=== PATIENT | female | born 1995 | race Caucasian/White ===

== ENCOUNTER 2016-10-01 22:10 | Emergency (ER) | payer OTHER ==
[2016-10-01 22:23] VITALS: BP 137/77; PULSE 96; BMI 39.9
[2016-10-01] MEDS ORDERED: IBUPROFEN 600 MG TABLET (FP) PO ONE ×2 (23:25→23:53)
[2016-10-01] MEDS ORDERED: METHOCARBAMOL 500 MG TABLET PO ONE (23:26)
--- NOTE | 2016-10-01 23:26 | PDOC ---
History of Present Illness - General History Source: Patient Exam Limitations: No Limitations - History of Present Illness Initial Comments: 10/02/16 00:28 The patient is a 21-year-old female with a significant past medical history of anemia and asthma, and presents to the emergency department with lower back pain for 2 days. The patient reports that the back pain is localized to the left lower back, is non-radiating, and is exacerbated with movement and bending. The patient states that she last had this back pain 6 years ago. The patient denies chest pain, shortness of breath, headache and dizziness. The patient denies fever, chills, abdominal pain, nausea, vomit, diarrhea and constipation. The patient denies dysuria, frequency, urgency and hematuria. Allergies: NKDA Social History: No toxic habits. <Clara Acosta - Last Filed: 10/02/16 00:28> <Andra Michael - Last Filed: 10/02/16 05:15> - General Chief Complaint: Back Pain Stated Complaint: BACK PAIN Time Seen by Provider: 10/01/16 22:58 Past History <Clara Acosta - Last Filed: 10/02/16 00:28> - Past Medical History Anemia: Yes Asthma: Yes - Psycho/Social/Smoking Cessation Hx Anxiety: No Suicidal Ideation: No Smoking Status: No Smoking History: Never smoked Number of Cigarettes Smoked Daily: 0 Hx Alcohol Use: No Substance Use Type: None <Andra Michael - Last Filed: 10/02/16 05:15> - Past Medical History Allergies/Adverse Reactions: Allergies Allergy/AdvReac Type Severity Reaction Status Date / Time No Known Allergies Allergy Verified 10/01/16 22:21 Home Medications: Ambulatory Orders NK [No Known Home Medication] 10/01/16 Review of Systems - Review of Systems Able to Perform ROS?: Yes Comments:: 10/02/16 00:28 CONSTITUTIONAL: Absent: fever, chills, diaphoresis, generalized weakness, malaise, loss of appetite HEENT: Absent: rhinorrhea, nasal congestion, throat pain, throat swelling, difficulty swallowing, mouth swelling, ear pain, eye pain, visual changes CARDIOVASCULAR: Absent: chest pain, syncope, palpitations, irregular heart rate, lightheadedness , peripheral edema RESPIRATORY: Absent: cough, shortness of breath, dyspnea with exertion, orthopnea, wheezing, stridor, hemoptysis GASTROINTESTINAL: Absent: abdominal pain, abdominal distension, nausea, vomiting, diarrhea, constipation, melena, hematochezia GENITOURINARY: Absent: dysuria, frequency, urgency, hesitancy, hematuria, flank pain, genital pain MUSCULOSKELETAL: Present: (+) Lower back pain. Absent: arthralgia, joint swelling SKIN: Absent: rash, itching, pallor HEMATOLOGIC/IMMUNOLOGIC: Absent: easy bleeding, easy bruising, lymphadenopathy, frequent infections ENDOCRINE: Absent: unexplained weight gain, unexplained weight loss, heat intolerance, cold intolerance NEUROLOGIC: Absent: headache, focal weakness or paresthesias, dizziness, unsteady gait, seizure, mental status changes, bladder or bowel incontinence PSYCHIATRIC: Absent: anxiety, depression, suicidal or homicidal ideation, hallucinations. <AcostaClara - Last Filed: 10/02/16 00:28> *Physical Exam - Vital Signs Last Vital Signs Temp Pulse Resp BP Pulse Ox 96 H 96 H 137/77 100 10/01/16 22:22 10/01/16 22:22 10/01/16 22:22 10/01/16 22:22 - Physical Exam Comments: 10/02/16 00:28 GENERAL: Well developed, well nourished. Awake and alert. No acute distress. HEENT: Normocephalic, atraumatic. PERRLA, EOMI. No conjunctival pallor. Sclera are non- icteric. Moist mucous membranes. Oropharynx is clear. NECK: Supple. Full ROM. No JVD. Carotid pulses 2+ and symmetric, without bruits. No thyromegaly. No lymphadenopathy. CARDIOVASCULAR: Regular rate and rhythm. No murmurs, rubs, or gallops. Distal pulses are 2+ and symmetric. PULMONARY: No evidence of respiratory distress. Lungs clear to auscultation bilaterally. No wheezing, rales or rhonchi. ABDOMINAL: Soft. Non-tender. Non-distended. No rebound or guarding. No organomegaly. Normoactive bowel sounds. MUSCULOSKELETAL (+) Left flank pain, no pain with percussion, but minimal pain with deep palpation. Normal range of motion at all joints. No bony deformities or tenderness. EXTREMITIES: No cyanosis. No clubbing. No edema. No calf tenderness. SKIN: Warm and dry. Normal capillary refill. No rashes. No jaundice. NEUROLOGICAL: Alert, awake, appropriate. Cranial nerves 2-12 intact. No deficits to light touch and temperature in face, upper extremities and lower extremities. No motor deficits in the in face, upper extremities and lower extremities. Normoreflexic in the upper and lower extremities. Normal speech. Toes are down- going bilaterally. Gait is normal without ataxia. PSYCHIATRIC: Cooperative. Good eye contact. Appropriate mood and affect. <Clara Acosta - Last Filed: 10/02/16 00:28> - Vital Signs Last Vital Signs Temp Pulse Resp BP Pulse Ox 96 H 96 H 137/77 100 10/01/16 22:22 10/01/16 22:22 10/01/16 22:22 10/01/16 22:22 <Andra Michael - Last Filed: 10/02/16 05:15> ED Treatment Course - Medications Given in the ED: ED Medications Discontinued Medications Generic Name Dose Route Start Last Admin Trade Name Freq PRN Reason Stop Dose Admin Ibuprofen 600 mg 10/01/16 23:25 10/01/16 23:54 Motrin - PO 10/01/16 23:26 600 mg ONCE ONE Administration Methocarbamol 1,000 mg 10/01/16 23:26 10/01/16 23:54 Robaxin - PO 10/01/16 23:27 1,000 mg ONCE ONE Administration <Clara Acosta - Last Filed: 10/02/16 00:28> Medical Decision Making - Medical Decision Making 10/02/16 05:12 Pt comes with muscular back pain No radiation of pain down her legs. Pt was given NSAID and muscle relaxant in the ER for the pain. She has a normal UA; no dysuria and no sign of kidney stone. Pt has no spinal tenderness, but I ordered a lumbar spine CT to evaluate vertebral height. Pt refused the L spine XR as it was taking too long. SHe eloped from the ER. <Andra Michael - Last Filed: 10/02/16 05:15> *DC/Admit/Observation/Transfer - Attestations Scribe Attestion: 10/02/16 00:29 Documentation prepared by Clara Acosta, acting as medical orderly for Andra Michael MD. <Clara Acosat - Last Filed: 10/02/16 00:28> <Andra Michael - Last Filed: 10/02/16 05:15> Diagnosis at time of Disposition: Low back pain - Discharge Dispostion Disposition: ELOPED Condition at time of disposition: Improved
[2016-10-01] MEDS ORDERED: METHOCARBAMOL 500 MG TABLET ONE (23:53)
[2016-10-01 23:57] LABS: URINE APPEARANCE CLEAR; URINE BILIRUBIN NEGATIVE (NEGATIVE); URINE BLOOD NEGATIVE (NEGATIVE); URINE COLOR LTYELLOW; URINE GLUCOSE (UA) NEGATIVE (NEGATIVE); URINE KETONE NEGATIVE (NEGATIVE); URINE LEUK ESTERASE NEGATIVE (NEGATIVE); URINE NITRITE NEGATIVE (NEGATIVE); URINE PROTEIN NEGATIVE (NEGATIVE); URINE UROBILINOGEN NEGATIVE E.U./dl (0.2-1.0)
== END 2016-10-02 05:15 | disposition left against medical advice (07) ==
LOC: JER 22:10
DX: M54.5 Low back pain (principal)
CPT/HCPCS: 81003; 84703; 99281-25

== ENCOUNTER 2017-07-25 14:56 | Emergency (ER) | payer OTHER ==
[2017-07-25 15:08] VITALS: BP 128/72; PULSE 86; TEMP 98; BMI 38.2
--- NOTE | 2017-07-25 15:08 | PDOC ---
Rapid Medical Evaluation Chief Complaint: Ear Problem Time Seen by Provider: 07/25/17 15:06 Medical Evaluation: Allergies Allergy/AdvReac Type Severity Reaction Status Date / Time No Known Allergies Allergy Verified 07/25/17 15:05 07/25/17 15:06 pt here with c/o: ear pain and nasal congestion, no fevr, 15 weeks Pt evaluated briefly: vss, no erythema to post pharynx Pt ordered for : none Pt to proceed to the ED Discharge Disposition - Diagnosis Right ear pain - Referrals Referrals: Luca Robertson MD [Primary Care Provider] - - Patient Instructions - Post Discharge Activity
--- NOTE | 2017-07-25 17:07 | PDOC ---
History of Present Illness - General Chief Complaint: Ear Problem Stated Complaint: 15wks preg Cold Symptoms Time Seen by Provider: 07/25/17 15:06 History Source: Patient Exam Limitations: No Limitations - History of Present Illness Timing/Duration: intermittent (for 4 days, rt. ear pressure last night feels clogged ) Severity: mild Associated Symptoms: reports: other (nasal congestion, rt. ear feels clogged). denies: chest pain, cough, diaphoresis, fever/chills, headaches, loss of appetite, malaise, nausea/vomiting, rash, seizure, shortness of breath, syncope , weakness Past History - Past Medical History Allergies/Adverse Reactions: Allergies Allergy/AdvReac Type Severity Reaction Status Date / Time No Known Allergies Allergy Verified 07/25/17 15:05 Home Medications: Ambulatory Orders Loratadine [Claritin -] 10 mg PO DAILY #7 tablet MDD 1 07/25/17 Anemia: Yes Asthma: Yes COPD: No - Suicide/Smoking/Psychosocial Hx Smoking Status: No Smoking History: Never smoked Have you smoked in the past 12 months: No Number of Cigarettes Smoked Daily: 0 Information on smoking cessation initiated: No Hx Alcohol Use: No Drug/Substance Use Hx: No Substance Use Type: None Review of Systems - Review of Systems Able to Perform ROS?: Yes Constitutional: No: Symptoms Reported HEENTM: Yes: Nose Congestion (for 4 days, left nostril bleeding today none now ) Respiratory: No: Symptoms reported Cardiac (ROS): No: Symptoms Reported ABD/GI: No: Symptoms Reported : No: Symptoms Reported Musculoskeletal: No: Symptoms Reported Integumentary: No: Symptoms Reported Neurological: No: Symptoms reported *Physical Exam - Vital Signs Last Vital Signs Temp Pulse Resp BP Pulse Ox 98.0 F 86 18 128/72 100 07/25/17 15:06 07/25/17 15:06 07/25/17 15:06 07/25/17 15:06 07/25/17 15:06 - Physical Exam General Appearance: Yes: Appropriately Dressed HEENT: positive: TMs Normal (b/l ), Nasal Congestion (b/l, dried blood left nostril ), Hearing Grossly Normal. negative: Pharyngeal Erythema, Tonsillar Exudate, Tonsillar Erythema, Hearing Decreased Neck: negative: Lymphadenopathy (R), Lymphadenopathy (L) Respiratory/Chest: positive: Lungs Clear, Normal Breath Sounds. negative: Chest Tender, Respiratory Distress Cardiovascular: positive: Regular Rhythm, Regular Rate, S1, S2 Integumentary: positive: Normal Color Neurologic: positive: Alert, Normal Response *DC/Admit/Observation/Transfer Diagnosis at time of Disposition: Right ear pain, Nasal congestion, Mild epistaxis Upper respiratory infection Qualifiers: URI type: unspecified viral URI Qualified Code(s): J06.9 - Acute upper respiratory infection, unspecified; B97.89 - Other viral agents as the cause of diseases classified elsewhere; B97.89 - Other viral agents as the cause of diseases classified elsewhere - Discharge Dispostion Disposition: HOME Condition at time of disposition: Stable - Referrals Referrals: Luca Robertson MD [Primary Care Provider] - - Patient Instructions Additional Instructions: Drink a lot a fluids and rest Follow-up with your primary care provider within the next few days Return to emergency room if any difficulty breathing or any new symptoms develop You may put a humidifier next to your bed to help nasal congestion If nosebleed reoccurs apply pressure to both sides of nose keep pressure for 15 minutes without stopping Patient voiced understanding of discharge instructions and all questions were answered - Post Discharge Activity
== END 2017-07-25 17:46 | disposition home or self-care (01) ==
LOC: JERFT 14:56
DX: O99.89 Other specified diseases and conditions complicating pregnancy, childbirth and the puerperium (principal); J06.9 Acute upper respiratory infection, unspecified; B97.89 Other viral agents as the cause of diseases classified elsewhere; Z3A.15 15 weeks gestation of pregnancy
CPT/HCPCS: 86235; 99281-25

== ENCOUNTER 2017-11-09 16:06 | Emergency (ER) | payer OTHER ==
--- NOTE | 2017-11-09 16:10 | PDOC ---
Rapid Medical Evaluation Time Seen by Provider: 11/09/17 16:09 Medical Evaluation: Allergies Allergy/AdvReac Type Severity Reaction Status Date / Time No Known Allergies Allergy Verified 11/08/17 15:19 11/09/17 16:09 22 year old female with history of eczema presenting with 2-3 days of rash on hands bilaterally, typical of prior flares. 30 wks and sent here by PCP for evaluation. No OB complaints. -To FT
[2017-11-09 16:11] VITALS: BP 125/65; PULSE 98; TEMP 98; BMI 37.4
--- NOTE | 2017-11-09 16:43 | PDOC ---
History of Present Illness - General Chief Complaint: Rash Stated Complaint: 30 weeks c/o Eczema Time Seen by Provider: 11/09/17 16:09 History Source: Patient Exam Limitations: No Limitations - History of Present Illness Initial Comments: 11/09/17 16:42 22 yr female 30 weeks with eczema to her hands for 3 days . pos itching no redness. 11/09/17 18:32 Location: reports: hands Past History - Past Medical History Allergies/Adverse Reactions: Allergies Allergy/AdvReac Type Severity Reaction Status Date / Time No Known Allergies Allergy Verified 11/09/17 16:11 Home Medications: Ambulatory Orders 19 Tablet 1 tab PO DAILY 11/08/17 Anemia: Yes Asthma: Yes COPD: No - Suicide/Smoking/Psychosocial Hx Smoking Status: No Smoking History: Never smoked Have you smoked in the past 12 months: No Number of Cigarettes Smoked Daily: 0 Information on smoking cessation initiated: No Hx Alcohol Use: No Drug/Substance Use Hx: No Substance Use Type: None Review of Systems - Review of Systems Able to Perform ROS?: Yes Is the patient limited Yakut proficient: No Constitutional: No: Symptoms Reported HEENTM: No: Symptoms Reported Respiratory: No: Symptoms reported Cardiac (ROS): No: Symptoms Reported ABD/GI: No: Symptoms Reported Integumentary: Yes: Symptoms Reported *Physical Exam - Vital Signs Last Vital Signs Temp Pulse Resp BP Pulse Ox 98 F 98 H 18 125/65 97 11/09/17 16:09 11/09/17 16:09 11/09/17 16:09 11/09/17 16:09 11/09/17 16:09 - Physical Exam General Appearance: Yes: Nourished, Appropriately Dressed HEENT: positive: EOMI, DHAVAL Neck: positive: Supple Respiratory/Chest: positive: Lungs Clear, Normal Breath Sounds Cardiovascular: positive: Regular Rhythm, Regular Rate Integumentary: positive: Normal Color, Dry, Warm, Rash (patchy scaly areas on the dorsal surface of bilateral hands, no drainage , no pustules ) Neurologic: positive: Fully Oriented, Alert, Normal Mood/Affect, Normal Response , Motor Strength 5/5 Medical Decision Making - Medical Decision Making 11/09/17 18:34 cc: rash to hands for 3 days itchy and dry no vesicles no redness, limited to the thenar surfaces of both hands, no palmar involvement no redness or drainage will treat with Aquaphor ointment dc inst given to the pt all questions asked and answered at discharge *DC/Admit/Observation/Transfer Diagnosis at time of Disposition: Eczema Qualifiers: Eczema type: unspecified Qualified Code(s): L30.9 - Dermatitis, unspecified - Discharge Dispostion Disposition: HOME Condition at time of disposition: Good - Referrals Referrals: Luca Robertson MD [Primary Care Provider] - - Patient Instructions Additional Instructions: cool water to wash hands avoid hot water and perfumed soaps apply aquaphor 2-3 times a day return if any increased redness, spreading up the arm or any other concerns - Post Discharge Activity
== END 2017-11-09 16:45 | disposition home or self-care (01) ==
LOC: JERFT 16:06
DX: O26.893 Other specified pregnancy related conditions, third trimester (principal); O99.713 Diseases of the skin and subcutaneous tissue complicating pregnancy, third trimester; L30.9 Dermatitis, unspecified; Z3A.30 30 weeks gestation of pregnancy
CPT/HCPCS: 99281-25

== ENCOUNTER 2018-01-18 14:00 | Inpatient (IN) | payer OTHER ==
[2018-01-18 15:32] VITALS: BMI 40.4
--- NOTE | 2018-01-18 16:03 | PN ---
Progress Note (short form) - Note Progress Note: xx 3 cm, 70 vx -3 mi, fhr cat 1, no contraction, cervidil rba discussed, cervidil inserted
[2018-01-18 16:13] LABS: BASO % 0.3 % (0-2.0); EOS % 2.3 % (0-4.5); HEMATOCRIT 37.8 % (32.4-45.2); HEMOGLOBIN 12.8 GM/dL (10.7-15.3); LYMPH % 14.5 % (8-40); MCH 29.8 pg (25.7-33.7); MCHC 33.8 g/dl (32.0-36.0); MEAN CELL VOLUME 88.1 fl (80-96); MEAN PLT VOLUME 9.1 fl (7.5-11.1); MONO % 4.2 % (3.8-10.2); NEUT % 78.7 % (42.8-82.8); PLATELET COUNT 220 K/MM3 (134-434); RBC 4.29 M/mm3 (3.60-5.2); RDW 14.2 % (11.6-15.6); WHITE BLOOD COUNT 10.1 K/mm3 (4.0-10.0)
[2018-01-18 16:39] LABS: ANION GAP 7 (8-16); BLOOD UREA NITROGEN 7 mg/dL (7-18); CALCIUM 8.5 mg/dL (8.5-10.1); CHLORIDE 109 mmol/L (98-107); CO2 24 mmol/L (21-32); CREATININE 0.5 mg/dL (0.55-1.02); GLUCOSE,RANDOM 89 mg/dL (74-106); SODIUM 140 mmol/L (136-145)
[2018-01-18 17:40] LABS: INR 0.98 (0.82-1.09); PROTHROMBIN TIME (PATIENT) 11.1 SEC (9.7-13.0)
[2018-01-18 17:43] LABS: ACTIVATED PTT 26.6 SECONDS (26.9-34.4)
[2018-01-18] MEDS ORDERED: DINOPROSTONE 10 MG VAGINAL SUPPOSITORY VG ONE (17:45)
--- NOTE | 2018-01-18 21:51 | PN ---
Progress Note (short form) - Note Progress Note: cx 4 cm 70 vx -2 mi, fhr cat 1, irregular contraction
--- NOTE | 2018-01-18 21:56 | HP ---
Past Medical History - Primary Care Physician PCP:: Akhil Billy - Admission Chief Complaint: 40,2 weeks, for cervidil induction History of Present Illness: 22 yo f 40,2 weeks, admitted for cervidil induction, rba discussed cx 3 cm 70 vx -3 mi, fhr cat 1, no contraction History Source: Patient Limitations to Obtaining History: No Limitations - Past Medical History ...: 1 ...Para: 0 ...LMP: 01/09/17 ... Weeks Gestation by Dates: 40.2 ...EDC by Dates: 01/16/18 ...EDC by Sono: 01/16/18 - Past Surgical History Hx Myomectomy: No Hx Transabdominal Cerclage: No - Smoking History Smoking history: Never smoked Have you smoked in the past 12 months: No Aproximately how many cigarettes per day: 0 - Alcohol/Substance Use Hx Alcohol Use: No - Social History History of Recent Travel: No Home Medications - Allergies Allergies/Adverse Reactions: Allergies Allergy/AdvReac Type Severity Reaction Status Date / Time No Known Allergies Allergy Verified 11/09/17 16:11 - Home Medications Home Medications: Ambulatory Orders 19 Tablet 1 tab PO DAILY 11/08/17 Review of Systems - Review of Systems Constitutional: reports: No Symptoms Eyes: reports: No Symptoms HENT: reports: No Symptoms Neck: reports: No Symptoms Cardiovascular: reports: No Symptoms Respiratory: reports: No Symptoms Gastrointestinal: reports: No Symptoms Genitourinary: reports: No Symptoms Breasts: reports: No Symptoms Reported Musculoskeletal: reports: No Symptoms Integumentary: reports: No Symptoms Neurological: reports: No Symptoms Endocrine: reports: No Symptoms Hematology/Lymphatic: reports: No Symptoms Psychiatric: reports: No Symptoms Physical Exam - Maternity Vital Signs: Vital Signs Temperature 98.5 F 01/18/18 14:00 Pulse Rate 86 01/18/18 21:00 Respiratory Rate 18 01/18/18 21:00 Blood Pressure 138/81 01/18/18 21:00 O2 Sat by Pulse Oximetry (%) Constitutional: Yes: Well Nourished, No Distress, Calm Eyes: Yes: WNL, Conjunctiva Clear, EOM Intact HENT: Yes: WNL, Atraumatic, Normocephalic Neck: Yes: WNL, Supple, Trachea Midline Cardiovascular: Yes: WNL, Regular Rate and Rhythm Breast(s): Yes: WNL - Abdominal Exam/OB Fundal Height: 40 Number of Fetuses: Single Presentation: Vertex Contractions: No Intensity: Unaware Heart Rate Location: [facility] Category: I Accelerations: Uniform Decelerations: None - Vaginal Exam/OB Vaginal Bleediing: No Speculum Exam: No Dilatation (cm): 3 cm Effacement (%): 70 Amniotic Membrane Status: Intact Presentation: Vertex/Position Station: -3 - Physical Exam Musculoskeletal: Yes: WNL Edema: Yes Edema: LLE: Trace, RLE: Trace Deep Tendon Reflex Grade: Normal +2 Psychiatric: Yes: WNL - Labs Lab Results: CBC, BMP 01/18/18 15:00 01/18/18 15:00 Hemorrhage Risk Assessment - Risk Factors Medium Risk Factors: Yes: None High Risk Factors: Yes: None Risk Score: 1 Risk Level: Medium Risk Problem List - Problems (1) Post term over 40 weeks Code(s): O48.0 - POST-TERM (2) Encounter for elective induction of labor Code(s): Z34.90 - ENCNTR FOR SUPRVSN OF NORMAL , UNSP, UNSP TRIMESTER Assessment/Plan admit for cervidil induction. rba discussed
[2018-01-18] MEDS ORDERED: BUTORPHANOL TARTRATE 1 MG/ML VIAL IVPUSH ONE (22:30)
[2018-01-18] MEDS ORDERED: PROMETHAZINE HCL 25 MG/1 ML VIAL IVPUSH ONE (22:30)
[2018-01-19] MEDS: DEXTROSE 5%-LACTATED RINGERS 1,000 ML IV SCH ×2 (00:10→04:30)
[2018-01-19] MEDS ORDERED: PROMETHAZINE HCL 25 MG/1 ML VIAL ONE (00:22)
[2018-01-19] MEDS ORDERED: BUTORPHANOL TARTRATE 1 MG/ML VIAL ONE ×2 (00:22)
[2018-01-19] MEDS ORDERED: OXYTOCIN 30 UNITS in 0.9% NS 30 UNIT/500 ML INFUS.BAG IVPB SCH (04:30)
--- NOTE | 2018-01-19 06:20 | PN ---
Progress Note (short form) - Note Progress Note: cx 5 cm, 80 vc -2 arom, cler fluid, fhr cat 1, on pitocin, irregular contraction Problem List - Problems (1) Post term over 40 weeks Code(s): O48.0 - POST-TERM (2) Encounter for elective induction of labor Code(s): Z34.90 - ENCNTR FOR SUPRVSN OF NORMAL , UNSP, UNSP TRIMESTER
[2018-01-19] MEDS ORDERED: FENTANYL/BUPIVACAINE/NS/PF - PCEA - 50 ML DISP.SYRIN EP ONE (07:04)
[2018-01-19] MEDS: FERROUS SO4 325 MG TABLET (FP) PO SCH ×2 (08:00→17:16)
[2018-01-19] MEDS ORDERED: WITCH HAZEL 50% (TUCKS) 40 PAD/JAR PAD TP PRN (08:06)
[2018-01-19] MEDS ORDERED: BISACODYL 10 MG SUPP.RECT RC PRN (08:06)
[2018-01-19] MEDS ORDERED: oxyCODONE HCL 5 MG TABLET PO PRN (08:06)
[2018-01-19] MEDS ORDERED: METHYLERGONOVINE MALEATE 0.2 MG/1 ML AMP IM PRN (08:06)
[2018-01-19] MEDS ORDERED: BENZOCAINE 28 GM HEMORRHOIDAL OINTMENT TP PRN (08:06)
[2018-01-19] MEDS ORDERED: BENZOCAINE 20% 57 GM BOTTLE TP PRN (08:06)
[2018-01-19] MEDS ORDERED: D5W-LR W/ 20 UNITS OXYTOCIN 20 UNIT/1,000 ML INFUS.BAG IV SCH (08:15)
[2018-01-19] MEDS ORDERED: OXYTOCIN 20 UNITS in 0.9% NS 20 UNIT/1,000 ML INFUS.BAG IV SCH (08:37)
[2018-01-19] MEDS ORDERED: OXYTOCIN 20 UNITS in 0.9% NS 20 UNIT/1,000 ML INFUS.BAG IV ONE (09:05)
[2018-01-19] MEDS: PRENATAL VITAMINS W/ FOLIC ACID TABLET (FP) PO SCH (09:32)
[2018-01-19] MEDS: ACETAMINOPHEN 325 MG TABLET (FP) PO PRN ×2 (12:10→21:31)
[2018-01-19] MEDS: IBUPROFEN 600 MG TABLET (FP) PO PRN ×2 (12:11→21:30)
--- NOTE | 2018-01-20 07:46 | PN ---
Post Progress Note - Subjective Subjective: c/o cramps Post Day: 1 Type of Delivery: Vital Signs: Vital Signs Temperature 97.8 F 01/20/18 06:00 Pulse Rate 90 01/20/18 06:00 Respiratory Rate 18 01/20/18 06:00 Blood Pressure 119/63 01/20/18 06:00 O2 Sat by Pulse Oximetry (%) 100 01/19/18 08:30 Breast Exam: Yes: Soft, Other (not BF ). No: Engorged Uterus: Yes: Fundus Firm, Fundus below umbilicus Lochia: Yes: Rubra Lochia, amount: Moderate Extremities: Yes: Calves non-tender Perineum: Yes: Laceration Activity: Ambulating - Labs Labs: CBC WBC 10.1 K/mm3 (4.0-10.0) H D 01/18/18 15:00 RBC 4.29 M/mm3 (3.60-5.2) 01/18/18 15:00 Hgb 12.8 GM/dL (10.7-15.3) D 01/18/18 15:00 Hct 37.8 % (32.4-45.2) 01/18/18 15:00 MCV 88.1 fl (80-96) 01/18/18 15:00 MCH 29.8 pg (25.7-33.7) D 01/18/18 15:00 MCHC 33.8 g/dl (32.0-36.0) 01/18/18 15:00 RDW 14.2 % (11.6-15.6) 01/18/18 15:00 Plt Count 220 K/MM3 (134-434) D 01/18/18 15:00 MPV 9.1 fl (7.5-11.1) D 01/18/18 15:00 Neutrophils % 78.7 % (42.8-82.8) 01/18/18 15:00 Lymphocytes % 14.5 % (8-40) D 01/18/18 15:00 Monocytes % 4.2 % (3.8-10.2) 01/18/18 15:00 Eosinophils % 2.3 % (0-4.5) 01/18/18 15:00 Basophils % 0.3 % (0-2.0) 01/18/18 15:00 Nucleated RBC % 0 % (0-0) 01/18/18 15:00 Problem List - Problems (1) follow-up Code(s): Z39.2 - ENCOUNTER FOR ROUTINE FOLLOW-UP Assessment/Plan stable Plan cbc today discharge tomorrow
[2018-01-20 08:04] LABS: BASO % 0.4 % (0-2.0); EOS % 1.4 % (0-4.5); HEMATOCRIT 29.2 % (32.4-45.2); HEMOGLOBIN 9.9 GM/dL (10.7-15.3); LYMPH % 19.6 % (8-40); MCH 30.1 pg (25.7-33.7); MCHC 33.8 g/dl (32.0-36.0); MEAN PLT VOLUME 8.3 fl (7.5-11.1); NEUT % 73.6 % (42.8-82.8); PLATELET COUNT 131 K/MM3 (134-434); RBC 3.28 M/mm3 (3.60-5.2); RDW 14.3 % (11.6-15.6); WHITE BLOOD COUNT 10.3 K/mm3 (4.0-10.0)
[2018-01-20] MEDS: PRENATAL VITAMINS W/ FOLIC ACID TABLET (FP) PO SCH (09:32)
[2018-01-20] MEDS: ACETAMINOPHEN 325 MG TABLET (FP) PO PRN (09:32)
[2018-01-20] MEDS: FERROUS SO4 325 MG TABLET (FP) PO SCH ×2 (09:32→17:04)
[2018-01-20] MEDS: IBUPROFEN 600 MG TABLET (FP) PO PRN (09:33)
[2018-01-20] MEDS ORDERED: SENNOSIDES/DOCUSATE COMBO (SENNA PLUS) TABLET (UD) PO PRN (22:00)
--- NOTE | 2018-01-21 06:01 | PN ---
Post Progress Note - Subjective Subjective: no complains Post Day: 2 Type of Delivery: Vital Signs: Vital Signs Temperature 98.1 F 01/20/18 22:00 Pulse Rate 96 H 01/20/18 22:00 Respiratory Rate 18 01/20/18 22:00 Blood Pressure 132/79 01/20/18 22:00 O2 Sat by Pulse Oximetry (%) 100 01/19/18 08:30 Breast Exam: Yes: Soft. No: Engorged Uterus: Yes: Fundus Firm, Fundus below umbilicus, Non-tender, Other (obese abdomen ) Lochia: Yes: Rubra Lochia, amount: Moderate Extremities: Yes: Calves non-tender Perineum: Yes: Laceration (healing ) Activity: Ambulating - Labs Labs: CBC WBC 10.3 K/mm3 (4.0-10.0) H 01/20/18 07:16 RBC 3.28 M/mm3 (3.60-5.2) L D 01/20/18 07:16 Hgb 9.9 GM/dL (10.7-15.3) L D 01/20/18 07:16 Hct 29.2 % (32.4-45.2) L D 01/20/18 07:16 MCV 89.0 fl (80-96) 01/20/18 07:16 MCH 30.1 pg (25.7-33.7) 01/20/18 07:16 MCHC 33.8 g/dl (32.0-36.0) 01/20/18 07:16 RDW 14.3 % (11.6-15.6) 01/20/18 07:16 Plt Count 131 K/MM3 (134-434) L D 01/20/18 07:16 MPV 8.3 fl (7.5-11.1) 01/20/18 07:16 Neutrophils % 73.6 % (42.8-82.8) 01/20/18 07:16 Lymphocytes % 19.6 % (8-40) D 01/20/18 07:16 Monocytes % 5.0 % (3.8-10.2) 01/20/18 07:16 Eosinophils % 1.4 % (0-4.5) 01/20/18 07:16 Basophils % 0.4 % (0-2.0) 01/20/18 07:16 Nucleated RBC % 0 % (0-0) 01/20/18 07:16 Problem List - Problems (1) follow-up Code(s): Z39.2 - ENCOUNTER FOR ROUTINE FOLLOW-UP Assessment/Plan stable , s/p vag delivery / anemia counselled discharge today
[2018-01-21 08:24] VITALS: BP 130/84; PULSE 104; TEMP 98.4
[2018-01-21] MEDS: PRENATAL VITAMINS W/ FOLIC ACID TABLET (FP) PO SCH (09:14)
[2018-01-21] MEDS: FERROUS SO4 325 MG TABLET (FP) PO SCH (09:14)
--- NOTE | 2018-01-23 11:44 | DS ---
Physical Exam-MAIL DISTRIBUTOR Vital Signs: Vital Signs Temperature 98.4 F 01/21/18 08:22 Pulse Rate 104 H 01/21/18 08:22 Respiratory Rate 18 01/21/18 08:22 Blood Pressure 130/84 01/21/18 08:22 O2 Sat by Pulse Oximetry (%) 100 01/19/18 08:30 Constitutional: Yes: Well Nourished, No Distress, Calm Eyes: Yes: WNL, Conjunctiva Clear, EOM Intact HENT: Yes: WNL, Atraumatic, Normocephalic Neck: Yes: WNL, Supple, Trachea Midline Cardiovascular: Yes: WNL, Regular Rate and Rhythm Respiratory: Yes: WNL, Regular, CTA Bilaterally Gastrointestinal: Yes: WNL ...Rectal Exam: Yes: WNL Renal/: Yes: WNL ....Post : Yes: Uterus firm, Uterus non-tender, Slight lochia rubra Breast(s): Yes: WNL Musculoskeletal: Yes: WNL Extremities: Yes: WNL Edema: No Integumentary: Yes: WNL Neurological: Yes: WNL, Alert, Oriented ...Motor Strength: WNL Psychiatric: Yes: WNL, Alert, Oriented Labs: CBC, BMP 01/20/18 07:16 01/18/18 15:00 Delivery - Delivery Vaginal Delivery: Spontaneous (no complication) Type of Anesthesia: Local Episiotomy/Laceration: None EBL (cc): 500 Delivery, Single - Stages of Labor Date 1st Stage Initiatied: 01/19/18 Time 1st Stage Initiated: 12:00 Date 2nd Stage Initiated: 01/19/18 Time 2nd Stage Initiated: 07:15 Date of Delivery: 01/19/18 Time of Delivery: 07:32 Time Placenta Delivered: 07:34 Placenta: Yes: Spontaneous - 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 Gender: Male Weight: 8 lb 9 oz Position: Left, OA Total Hours ROM (Hrs/Mins): 1hr/39mins - 1 Minute Total Score: 7 5 Minutes Total Score: 9 - Feeding Plan Initial Plan: Elected not to breastfeed exclusively throughout hospitalization Discharge Summary Reason For Visit: LABOR INDUCTION Procedures: Principal: Hospital Course: uneventful Condition: Good - Instructions Diet, Activity, Other Instructions: Discharge Instructions * Out of Bed * * Regular Diet, High iron diet * Lorri Care * Avoid sex for 6 weeks * rtc 4-6 weeks f/u with dr Billy If you experience excessive bleeding or fever over 101 degrees, call doctor, the clinic or go to the Emergency Room. Referrals: [facility] ([facility]) [Outside] Disposition: HOME - Home Medications Comprehensive Discharge Medication List: Ambulatory Orders 19 Tablet 1 tab PO DAILY 11/08/17 Acetaminophen [Tylenol .Regular Strength -] 650 mg PO Q3H PRN tablet 01/20/18 Benzocaine [Americaine 20% [place] -] 1 spray TP PRN PRN bottle 01/20/18 Ferrous Sulfate [Feosol] 325 mg PO BIDWM #60 tab 01/20/18 Ibuprofen [Motrin -] 200 mg PO Q4H PRN tablet 01/20/18 Vitamins (Sjr) - 1 tab PO DAILY #30 tablet 01/20/18 Witch Jayde 50% (Tucks) [Tucks Pads -] 1 pad TP PRN PRN pad 01/20/18
== END 2018-01-21 13:00 | disposition home or self-care (01) | DRG 560 ==
LOC: JLDR 14:00 → J3W 01-19 09:19
PROVIDERS: ADMIT Obstetrics & Gynecology; ATTEND Obstetrics & Gynecology
PROC: 3E0P7VZ Introduction of Hormone into Female Reproductive, Via Natural or Artificial Opening (ICD-10-PCS; 2018-01-18)
PROC: 10E0XZZ Delivery of Products of Conception, External Approach (ICD-10-PCS; principal; 2018-01-19)
DX: O48.0 Post-term pregnancy (principal); Z3A.40 40 weeks gestation of pregnancy; O99.214 Obesity complicating childbirth; Z68.41 Body mass index [BMI] 40.0-44.9, adult; E66.9 Obesity, unspecified; Z37.0 Single live birth
CPT/HCPCS: 36415; 59409; 80048; 82803; 85025; 85610; 85730; 86593; 86850; 86900; 86901

== ENCOUNTER 2018-01-31 22:59 | Emergency (ER) | payer OTHER ==
[2018-01-31 23:02] VITALS: BP 139/80; BMI 37.4
[2018-01-31] MEDS ORDERED: ACETAMINOPHEN 325 MG TABLET (FP) PO ONE (23:30)
--- NOTE | 2018-01-31 23:30 | PDOC ---
History of Present Illness - General Chief Complaint: SIRS, Suspected/Possible Stated Complaint: FEVER/ x 1 week Time Seen by Provider: 01/31/18 23:18 - History of Present Illness Initial Comments: 02/01/18 01:21 22-year-old female complaining of low-grade temps and cough 1 day. Patient status post normal vaginal delivery on 01/18/2018. denies abdominal pain, NVD, urinary symptoms. = Past History - Past Medical History Allergies/Adverse Reactions: Allergies Allergy/AdvReac Type Severity Reaction Status Date / Time No Known Allergies Allergy Verified 01/31/18 23:02 Home Medications: Ambulatory Orders Ferrous Sulfate [Feosol] 325 mg PO DAILY 01/31/18 Vitamins (Sjr) - 1 tab PO DAILY 01/31/18 Levofloxacin [Levaquin] 750 mg PO DAILY #5 tablet 02/01/18 Anemia: Yes Asthma: No Cancer: No Cardiac Disorders: No COPD: No Diabetes: No HTN: No Seizures: No Thyroid Disease: No - Suicide/Smoking/Psychosocial Hx Smoking Status: No Smoking History: Never smoked Have you smoked in the past 12 months: No Number of Cigarettes Smoked Daily: 0 Information on smoking cessation initiated: No Hx Alcohol Use: No Drug/Substance Use Hx: No Substance Use Type: None Hx Substance Use Treatment: No Review of Systems - Review of Systems Able to Perform ROS?: Yes Is the patient limited Bengali proficient: No Constitutional: Yes: Fever HEENTM: Yes: Throat Pain Respiratory: Yes: Cough ABD/GI: No: Symptoms Reported, See HPI, Abdominal Distended, Abd. Pain w/ defecation, Blood Streaked Bowels, Constipated, Diarrhea, Difficulty Swallowing , Nausea, Poor Appetite, Poor Fluid Intake, Rectal Bleeding, Vomiting, Indigestion, Abdominal cramping, Tarry Stools, Other : Yes: Symptoms Reported, See HPI, Burning, Dysuria, Discharge, Frequency, Flank Pain, Hematuria, Incontinence, Pain, Urgency, Testicular Mass, Testicular Swelling, Lesions, Testicular Pain, Other *Physical Exam - Vital Signs Last Vital Signs Temp Pulse Resp BP Pulse Ox 100.1 F H 97 H 16 139/80 100 01/31/18 23:00 01/31/18 23:00 01/31/18 23:00 01/31/18 23:00 01/31/18 23:00 - Physical Exam General Appearance: Yes: Appropriately Dressed Respiratory/Chest: positive: Rhonchi Cardiovascular: positive: Regular Rhythm, Regular Rate Gastrointestinal/Abdominal: positive: Normal Bowel Sounds, Soft Extremity: positive: Normal Capillary Refill, Normal Inspection, Normal Range of Motion Integumentary: positive: Normal Color, Dry, Warm Neurologic: positive: Fully Oriented, Alert *DC/Admit/Observation/Transfer Diagnosis at time of Disposition: Pneumonia Qualifiers: Pneumonia type: due to unspecified organism Laterality: left Lung location: lower lobe of lung Qualified Code(s): J18.1 - Lobar pneumonia, unspecified organism - Discharge Dispostion Disposition: HOME - Prescriptions Prescriptions: Levofloxacin [Levaquin] 750 mg PO DAILY #5 tablet - Referrals Referrals: Luca Robertson MD [Primary Care Provider] - - Patient Instructions Printed Discharge Instructions: Pneumonia-Adult Additional Instructions: take levaquin as prescribed. take tylenol every 6 hours as needed for pain. follow up with your doctor as soon as possible. return to the ER if symptoms worsen. - Post Discharge Activity
[2018-01-31] MEDS ORDERED: ACETAMINOPHEN 325 MG TABLET (FP) ONE (23:34)
[2018-02-01 00:51] LABS: URINE APPEARANCE CLEAR; URINE BILIRUBIN NEGATIVE (<2.0 mg/dL); URINE BLOOD NEGATIVE (NEGATIVE); URINE COLOR LTYELLOW; URINE GLUCOSE (UA) NEGATIVE (NEGATIVE); URINE KETONE NEGATIVE (NEGATIVE); URINE NITRITE NEGATIVE (NEGATIVE); URINE PROTEIN NEGATIVE (NEGATIVE); URINE UROBILINOGEN NEGATIVE mg/dL (0.2-1.0)
[2018-02-01 00:55] LABS: URINE LEUK ESTERASE 3+ (NEGATIVE)
[2018-02-01] MEDS ORDERED: IBUPROFEN 600 MG TABLET (FP) PO ONE ×2 (01:32→01:36)
[2018-02-01 01:41] VITALS: PULSE 92; TEMP 99.6
[2018-02-01 01:42] LABS: URINE MUCUS RARE
== END 2018-02-01 01:41 | disposition home or self-care (01) ==
LOC: JER 22:59
DX: J18.1 Lobar pneumonia, unspecified organism (principal)
CPT/HCPCS: 71046-TC-FY; 81003; 81015; 87070; 87086; 87430; 99282-25

== ENCOUNTER 2019-05-28 21:22 | Emergency (ER) | payer OTHER ==
[2019-05-28 21:41] VITALS: BP 126/63; PULSE 113; TEMP 98.7; BMI 39.2
[2019-05-28] MEDS ORDERED: IBUPROFEN 600 MG TABLET (FP) PO ONE ×2 (23:20→23:32)
[2019-05-28] MEDS ORDERED: AMOX TR/POT CLAV 875MG/125MG TABLETS (FP) PO ONE (23:20)
[2019-05-28] MEDS ORDERED: ALBUTEROL SO4 2.5/IPRATROPIUM 0.5 INH SOL 3 ML VIAL.NEB. NEB ONE ×2 (23:20→23:32)
--- NOTE | 2019-05-28 23:22 | PDOC ---
*Physical Exam - Vital Signs Last Vital Signs Temp Pulse Resp BP Pulse Ox 98.7 F 113 H 18 126/63 95 05/28/19 21:39 05/28/19 21:39 05/28/19 21:39 05/28/19 21:39 05/28/19 21:39 Medical Decision Making - Medical Decision Making 05/28/19 23:22 Patient seen by the advanced practice provider under my direct supervision. Ancillary testing reviewed as necessary. I agree with plan as outlined by the advanced practice provider. Discharge - Discharge Information Problems reviewed: Yes Clinical Impression/Diagnosis: Asthma Qualifiers: Asthma severity: mild Asthma persistence: unspecified Asthma complication type : uncomplicated Qualified Code(s): J45.909 - Unspecified asthma, uncomplicated Otitis media Qualifiers: Otitis media type: unspecified Chronicity: acute Qualified Code(s): H66.90 - Otitis media, unspecified, unspecified ear Upper respiratory infection Qualifiers: URI type: unspecified URI Qualified Code(s): J06.9 - Acute upper respiratory infection, unspecified - Additional Discharge Information Prescriptions: Albuterol Sulfate Inhaler - [Ventolin HFA Inhaler -] 1 - 2 inh PO Q4H PRN #1 inhaler PRN Reason: Asthma Amoxicillin/Potassium Clav [Augmentin 875-125 Tablet] 1 each PO BID #20 tablet Sodium Chloride [Saline Nasal [place]] 1 ml NS BID #1 spray - Follow up/Referral Referrals: Danny Hilario MD [Primary Care Provider] - - Patient Discharge Instructions Patient Printed Discharge Instructions: DI for Ear Pain-Adult Additional Instructions: Drink plenty of fluids Gargle with warm salty water Drink warm liquids Take ibuprofen every 6 hours as needed for pain or fever take Augmentin as prescribed Follow with your doctor as soon as possible. - Post Discharge Activity Work/Back to School Note: Back to Work
--- NOTE | 2019-05-28 23:25 | PDOC ---
History of Present Illness - General Chief Complaint: Cold Symptoms Stated Complaint: FEVER Time Seen by Provider: 05/28/19 23:20 History Source: Patient - History of Present Illness Initial Comments: 05/28/19 23:20 23 year old c/o left ear pain, cough nasal congestion x 2 days. denies fever/ chills. reports that nieces were sick with similar symptoms denies nausea, vomiting, abdominal pain LMP: 05/14/2019 Past History - Past Medical History Allergies/Adverse Reactions: Allergies Allergy/AdvReac Type Severity Reaction Status Date / Time No Known Allergies Allergy Verified 05/28/19 21:39 Home Medications: Ambulatory Orders Ferrous Sulfate [Feosol] 325 mg PO DAILY 01/31/18 Vitamins (Sjr) - 1 tab PO DAILY 01/31/18 Levofloxacin [Levaquin] 750 mg PO DAILY #5 tablet 02/01/18 Albuterol Sulfate Inhaler - [Ventolin HFA Inhaler -] 1 - 2 inh PO Q4H PRN #1 inhaler 05/28/19 Amoxicillin/Potassium Clav [Augmentin 875-125 Tablet] 1 each PO BID #20 tablet 05/28/19 Sodium Chloride [Saline Nasal [place]] 1 ml NS BID #1 spray 05/28/19 Anemia: Yes Asthma: No Cancer: No Cardiac Disorders: No COPD: No Diabetes: No HTN: No Seizures: No Thyroid Disease: No - Psycho Social/Smoking Cessation Hx Smoking Status: No Smoking History: Never smoked Have you smoked in the past 12 months: No Number of Cigarettes Smoked Daily: 0 Hx Alcohol Use: No Drug/Substance Use Hx: No Substance Use Type: None Hx Substance Use Treatment: No Review of Systems - Review of Systems Able to Perform ROS?: Yes Is the patient limited Latvian proficient: No Constitutional: No: Symptoms Reported, See HPI, Chills, Diaphoresis, Fever, Loss of Appetite, Malaise, Night Sweats, Weakness, Weight Stable, Unintentional Wgt. Loss, Unexplained wgt Loss, Other HEENTM: Yes: Ear Pain, Nose Congestion, Throat Pain Respiratory: Yes: Cough Cardiac (ROS): No: Symptoms Reported, See HPI, Chest Pain, Edema, Irregular Heart Rate, Lightheadedness, Palpitations, Syncope, Chest Tightness, Other ABD/GI: No: Symptoms Reported, See HPI, Abdominal Distended, Abd. Pain w/ defecation, Blood Streaked Bowels, Constipated, Diarrhea, Difficulty Swallowing , Nausea, Poor Appetite, Poor Fluid Intake, Rectal Bleeding, Vomiting, Indigestion, Abdominal cramping, Tarry Stools, Other *Physical Exam - Vital Signs Last Vital Signs Temp Pulse Resp BP Pulse Ox 98.7 F 113 H 18 126/63 95 05/28/19 21:39 05/28/19 21:39 05/28/19 21:39 05/28/19 21:39 05/28/19 21:39 - Physical Exam General Appearance: Yes: Appropriately Dressed HEENT: positive: TM Dull (left TM with effusion and erythema right TM with effusion) Respiratory/Chest: positive: Lungs Clear, Normal Breath Sounds Cardiovascular: positive: Regular Rhythm, Regular Rate ED Progress Note - Progress Note Progress Note: 05/28/19 23:24 A: otitis media/ URI P: pain control will give albuterol neb x1. patient ran out of meds Discharge - Discharge Information Problems reviewed: Yes Clinical Impression/Diagnosis: Asthma Qualifiers: Asthma severity: mild Asthma persistence: unspecified Asthma complication type : uncomplicated Qualified Code(s): J45.909 - Unspecified asthma, uncomplicated Otitis media Qualifiers: Otitis media type: unspecified Chronicity: acute Qualified Code(s): H66.90 - Otitis media, unspecified, unspecified ear Upper respiratory infection Qualifiers: URI type: unspecified URI Qualified Code(s): J06.9 - Acute upper respiratory infection, unspecified - Additional Discharge Information Prescriptions: Albuterol Sulfate Inhaler - [Ventolin HFA Inhaler -] 1 - 2 inh PO Q4H PRN #1 inhaler PRN Reason: Asthma Amoxicillin/Potassium Clav [Augmentin 875-125 Tablet] 1 each PO BID #20 tablet Sodium Chloride [Saline Nasal [place]] 1 ml NS BID #1 spray - Follow up/Referral Referrals: Danny Hilario MD [Primary Care Provider] - - Patient Discharge Instructions Patient Printed Discharge Instructions: DI for Ear Pain-Adult Additional Instructions: Drink plenty of fluids Gargle with warm salty water Drink warm liquids Take ibuprofen every 6 hours as needed for pain or fever take Augmentin as prescribed Follow with your doctor as soon as possible. - Post Discharge Activity Work/Back to School Note: Back to Work
[2019-05-28] MEDS ORDERED: AMOX TR/POT CLAV 875MG/125MG TABLETS (FP) ONE (23:32)
== END 2019-05-29 00:31 | disposition home or self-care (01) ==
LOC: JER 21:22 → JERFT 21:22 → JER 05-29 00:31
DX: H66.92 Otitis media, unspecified, left ear (principal); J06.9 Acute upper respiratory infection, unspecified; J45.909 Unspecified asthma, uncomplicated; D64.9 Anemia, unspecified
CPT/HCPCS: 99281-25

== ENCOUNTER 2020-05-07 09:48 | Emergency (ER) | payer OTHER ==
[2020-05-07 09:57] VITALS: BP 93/69; PULSE 101; TEMP 97.2; BMI 38.2
[2020-05-07] MEDS ORDERED: diphenhydrAMINE HCL 25 MG CAPSULE (FP) PO ONE ×2 (10:10→10:14)
--- NOTE | 2020-05-07 10:22 | PDOC ---
History of Present Illness - General Chief Complaint: Rash Stated Complaint: RASH Time Seen by Provider: 05/07/20 10:01 History Source: Patient Exam Limitations: No Limitations - History of Present Illness Initial Comments: 05/07/20 10:18 Patient is a 24-year-old female who presents to the ED with complaint of a rash that she has had for the last 2 days. She states the rash is on her anterior chest and her bilateral legs. She states the rash is itchy. She denies any fevers or chills. She is 25 weeks gestation. She has not taken anything for her symptoms. She denies any known allergies. She denies any change in detergents, soaps, foods, contacts that she can recall. She denies any mouth or tongue swelling. She denies any difficulty breathing. Past History - Medical History Allergies/Adverse Reactions: Allergies Allergy/AdvReac Type Severity Reaction Status Date / Time No Known Allergies Allergy Verified 05/07/20 09:56 Home Medications: Ambulatory Orders Ferrous Sulfate [Feosol] 325 mg PO DAILY 01/31/18 Vitamins (Sjr) - 1 tab PO DAILY 01/31/18 levoFLOXacin [Levaquin] 750 mg PO DAILY #5 tablet 02/01/18 Albuterol Sulfate Inhaler - [Ventolin HFA Inhaler -] 1 - 2 inh PO Q4H PRN #1 inhaler 05/28/19 Amoxicillin/Potassium Clav [Augmentin 875-125 Tablet] 1 each PO BID #20 tablet 05/28/19 Sodium Chloride [Saline Nasal [place]] 1 ml NS BID #1 spray 05/28/19 Cephalexin [Keflex] 500 mg PO BID 7 Days #14 capsule 04/09/20 Loratadine [Claritin] 10 mg PO DAILY #10 tablet 05/07/20 Anemia: Yes Asthma: Yes Cancer: No Cardiac Disorders: No COPD: No Diabetes: No HTN: No Seizures: No Thyroid Disease: No - Reproductive History Is Patient Now?: Yes - Psycho-Social/Smoking History Smoking Status: No Smoking History: Never smoked Have you smoked in the past 12 months: No Number of Cigarettes Smoked Daily: 0 Information on smoking cessation initiated: No - Substance Abuse Hx (Audit-C & DAST Scrn) How often the patient has a drink containing alcohol: Never Score: In Men: 4 or > Positive; In Women: 3 or > Positive: 0 Screen Result (Pos requires Nsg. Audit-10AR): Negative In the last yr the pt used illegal drug/Rx for NonMed reason: No Score: Yes response is considered Positive: 0 Screen Result (Positive result requires Nsg. DAST-10): Negative Review of Systems - Review of Systems Comments:: 05/07/20 10:19 - Review of Systems Able to Perform ROS?: Yes Constitutional: No: Fever, Chills, Loss of Appetite, Night Sweats, Weakness HEENTM: No: Eye Pain, Vision changes, Ear Pain, Throat Pain, Throat Swelling, Mouth Pain, Difficulty Swallowing Respiratory: No: Cough, Shortness of Breath, Wheezing, Sputum Production Cardiac (ROS): No: Chest Pain, Chest Tightness, Palpitations, Irregular Heart Beat, Edema ABD/GI: No: Nausea, Vomiting, Abdominal Pain, Diarrhea : No Dysuria, No Hematuria, No Frequency, No Urgency Musculoskeletal: No: Muscle Pain, Back Pain, Joint Pain, Muscle Weakness, Neck Pain Integumentary: No: Lesions, positive: Rash Neurological: No: Headache, Numbness, Tingling, Weakness, Speech Difficulties *Physical Exam - Vital Signs Last Vital Signs Temp Pulse Resp BP Pulse Ox 97.2 F L 101 H 18 93/69 100 05/07/20 09:52 05/07/20 09:52 05/07/20 09:52 05/07/20 09:52 05/07/20 09:52 - Physical Exam 05/07/20 10:19 - Physical Exam General Appearance: Nourished, Appropriately Dressed, No Distress HEENT: EOMI, Normal Voice, No Pharyngeal Erythema, No Muffled/Hoarse voice, No Tonsillar Exudate, No Tonsillar Erythema, No Nasal Congestion, No Rhinorrhea, Hearing Grossly Normal, TMs Normal, No TM Bulging, No TM Dullness, No TM Erythema; uvula midline and without edema. No stridor. Neck: Supple, No Lymphadenopathy (R), No Lymphadenopathy (L), No Rigidity, No Decreased range of motion Respiratory/Chest: Lungs Clear, Normal Breath Sounds. No Respiratory Distress, No Accessory Muscle Use; good air entry bilaterally. No wheezes/rales/rhonchi. Cardiovascular: Regular Rhythm, Regular Rate, S1, S2 Gastrointestinal/Abdominal: Normal Bowel Sounds, Soft. Non-tender, No Guarding, No Rebound, No Rigidity Musculoskeletal: Normal Inspection. No Decreased Range of Motion Extremity: Normal Capillary Refill, Normal Inspection Integumentary: Normal Color, Dry. Excoriated rash appreciated to the anterior chest and bilateral legs. No burrows appreciated. The rash appears macular in nature. No vesicles appreciated. Rash appears like excoriated urticaria. Neurologic: digital media specialist II-XII NML intact, Fully Oriented, Alert, Normal Mood/Affect, Normal Response Medical Decision Making - Medical Decision Making 05/07/20 10:20 Assessment: Patient is a 24-year-old female with 2 days of a rash to her anterior chest and bilateral legs. She is 25 weeks gestation. Plan: -We will hold on steroids as the patient is not having any airway compromise or mouth/tongue swelling being that she is 25 weeks gestation -Benadryl p.o. given in the ED -We will send Claritin to the patient's pharmacy and have her follow-up with her primary doctor within 1 to 2 days for repeat evaluation. -She understands and agrees with this treatment plan and she is stable for discharge. Discharge - Discharge Information Problems reviewed: Yes Clinical Impression/Diagnosis: Urticaria Condition: Stable Disposition: HOME - Additional Discharge Information Prescriptions: Loratadine [Claritin] 10 mg PO DAILY #10 tablet - Follow up/Referral - Patient Discharge Instructions Patient Printed Discharge Instructions: DI for Hives Additional Instructions: Avoid scratching the rash if possible. Take the Claritin daily as needed. You can also take Benadryl if necessary for severe itching. Follow-up with your primary doctor within 1 to 2 days for repeat evaluation. - Post Discharge Activity
== END 2020-05-07 10:38 | disposition home or self-care (01) ==
LOC: JER 09:48
DX: L50.0 Allergic urticaria (principal)
CPT/HCPCS: 99283-25

== ENCOUNTER 2020-10-25 14:21 | Emergency (ER) | payer OTHER ==
[2020-10-25 14:25] VITALS: BP 137/84; PULSE 84; TEMP 97; BMI 36.6
[2020-10-25] MEDS ORDERED: KETOROLAC TROMETHAMINE 30 MG/1 ML VIAL IM ONE (14:53)
[2020-10-25] MEDS ORDERED: METHOCARBAMOL 500 MG TABLET PO ONE (14:53)
[2020-10-25] MEDS ORDERED: KETOROLAC TROMETHAMINE 30 MG/1 ML VIAL ONE (14:55)
[2020-10-25] MEDS ORDERED: METHOCARBAMOL 500 MG TABLET ONE (14:55)
== END 2020-10-25 15:42 | disposition home or self-care (01) ==
LOC: JERFT 14:21
PROC: 3E023GC Introduction of Other Therapeutic Substance into Muscle, Percutaneous Approach (ICD-10-PCS; principal; 2020-10-25)
DX: M54.5 Low back pain (principal)
CPT/HCPCS: 99284-25

== ENCOUNTER 2020-11-07 10:39 | Emergency (ER) | payer OTHER ==
[2020-11-07 10:46] VITALS: BP 122/63; PULSE 87; TEMP 98.2; BMI 36.6
[2020-11-07 12:01] LABS: HCG,QUALITATIVE URINE Negative
[2020-11-07 12:03] LABS: PH,URINE 5.5 (5.0-8.0); URINE APPEARANCE Clear; URINE BILIRUBIN Negative (NEGATIVE); URINE COLOR Yellow; URINE GLUCOSE (UA) Negative (NEGATIVE); URINE KETONE Negative (NEGATIVE); URINE LEUK ESTERASE 1+ (NEGATIVE); URINE NITRITE Negative (NEGATIVE); URINE PROTEIN Negative (NEGATIVE); URINE UROBILINOGEN 0.2 mg/dL (0.2-1.0)
[2020-11-07 12:07] LABS: EPI CELLS 94.9 /uL (0-25.1); HYALINE CASTS 12.71 /uL (0-3.1); URINE BACTERIA 4251.3 /uL (0-1359); URINE CRYSTALS NON SEEN /hpf; URINE RBC 17.7 /uL (0-23.9); URINE WBC 663.7 /uL (0-25.8)
== END 2020-11-07 12:14 | disposition home or self-care (01) ==
LOC: JERFT 10:39
DX: N89.8 Other specified noninflammatory disorders of vagina (principal)
CPT/HCPCS: 36415; 81003; 84703; 87070; 87086; 87205; 87491; 87591; 99283-25

== ENCOUNTER 2021-03-07 20:12 | Emergency (ER) | payer OTHER ==
[2021-03-07 20:19] VITALS: BMI 43.7
[2021-03-07] MEDS ORDERED: LACTATED RINGERS SOLUTION 1000 ML INFUS.BAG IV ONE (20:45)
[2021-03-07] MEDS ORDERED: METOCLOPRAMIDE HCL INJECTION 10 MG/2 ML VIAL IVPUSH ONE (20:48)
[2021-03-07] MEDS ORDERED: METOCLOPRAMIDE HCL INJECTION 10 MG/2 ML VIAL ONE (21:31)
[2021-03-07 21:54] LABS: BASO % 0.4 % (0-2.0); HEMATOCRIT 30.7 % (32.4-45.2); HEMOGLOBIN 10.3 GM/dL (10.7-15.3); MCH 25.4 pg (25.7-33.7); MCHC 33.5 g/dl (32.0-36.0); MEAN CELL VOLUME 75.7 fl (80-96); MEAN PLT VOLUME 7.3 fl (7.5-11.1); MONO % 5.3 % (3.8-10.2); NEUT % 79.3 % (42.8-82.8); PLATELET COUNT 308 10^3/uL (134-434); RBC 4.05 M/mm3 (3.60-5.2); RDW 15.4 % (11.6-15.6); WHITE BLOOD COUNT 10.9 K/mm3 (4.0-10.0)
[2021-03-07 22:20] LABS: BLOOD UREA NITROGEN 5.8 mg/dL (7-18); CALCIUM 8.7 mg/dL (8.5-10.1)
[2021-03-07] MEDS ORDERED: POTASSIUM CHLORIDE TABS 20 MEQ TABLET.ER (FP) PO ONE ×2 (22:22→22:44)
[2021-03-07 22:24] LABS: CREATININE 0.6 mg/dL (0.55-1.3)
[2021-03-07] MEDS ORDERED: MAGNESIUM SULF 50% (8.12 MEQ/2 ML-1 GM VIAL) IVPB ONE (22:24)
[2021-03-07] MEDS ORDERED: MAGNESIUM SULFATE IN WATER 2 GM/50 ML IVPB IVPB ONE (22:44)
[2021-03-08 00:58] VITALS: BP 120/73; PULSE 96; TEMP 98.3
[2021-03-08 01:45] LABS: EPI CELLS 23 /uL (0-25.1); HYALINE CASTS 5 /uL (0-3.1); PH,URINE 7.5 (5.0-8.0); URINE APPEARANCE CLEAR; URINE BACTERIA 194 /uL (0-1359); URINE BILIRUBIN NEGATIVE (NEGATIVE); URINE COLOR YELLOW; URINE GLUCOSE (UA) NEGATIVE (NEGATIVE); URINE KETONE 2+ (NEGATIVE); URINE LEUK ESTERASE 2+ (NEGATIVE); URINE NITRITE NEGATIVE (NEGATIVE); URINE PROTEIN NEGATIVE (NEGATIVE); URINE RBC 11 /uL (0-23.9); URINE WBC 21 /uL (0-25.8)
[2021-03-08] MEDS ORDERED: CEPHALEXIN 250 MG/5 ML ORAL SUSPENSION PO ONE (02:34)
[2021-03-08] MEDS ORDERED: CEPHALEXIN MONOHYDRATE 250 MG CAPSULE (FP) ONE (02:51)
[2021-03-08] MEDS ORDERED: CEPHALEXIN MONOHYDRATE 250 MG CAPSULE (FP) PO ONE (02:52)
== END 2021-03-08 04:11 | disposition home or self-care (01) ==
LOC: JER 20:12
PROC: 3E033GC Introduction of Other Therapeutic Substance into Peripheral Vein, Percutaneous Approach (ICD-10-PCS; principal; 2021-03-07)
PROC: 3E033GC Introduction of Other Therapeutic Substance into Peripheral Vein, Percutaneous Approach (ICD-10-PCS; 2021-03-07)
DX: O21.1 Hyperemesis gravidarum with metabolic disturbance (principal); Z3A.16 16 weeks gestation of pregnancy
CPT/HCPCS: 36415; 76816-TC; 80048; 81003; 84702; 85025; 87086; 93005; 93010; 99285-25

== ENCOUNTER 2021-06-21 19:01 | Emergency (ER) | payer OTHER ==
[2021-06-21 19:36] VITALS: BMI 39.9
[2021-06-21 22:11] VITALS: BP 111/51; PULSE 96; TEMP 98.2
== END 2021-06-21 21:40 | disposition home or self-care (01) ==
LOC: JERFT 19:01 → JER 19:01
DX: L30.9 Dermatitis, unspecified (principal)
CPT/HCPCS: 99281-25

== ENCOUNTER 2021-08-06 14:00 | Inpatient (IN) | payer OTHER ==
[2021-08-06] MEDS ORDERED: PROMETHAZINE HCL 25 MG/1 ML VIAL IVPUSH ONE (15:11)
[2021-08-06] MEDS ORDERED: BUTORPHANOL TARTRATE 1 MG/ML VIAL IVPB ONE (15:11)
[2021-08-06] MEDS ORDERED: AMPICILLIN - 2 GM in SODIUM CHLORIDE 100 ML IVPB ONE (15:22)
[2021-08-06 15:43] VITALS: BMI 36.6
[2021-08-06] MEDS ORDERED: DEXTROSE 5%-LACTATED RINGERS 1,000 ML IV SCH (16:00)
[2021-08-06] MEDS ORDERED: AMPICILLIN SODIUM 2 GM VIAL ONE (16:14)
[2021-08-06] MEDS ORDERED: SODIUM CHLORIDE 100 ML IVPB ONE (16:14)
[2021-08-06 16:32] LABS: BASO % 0.3 % (0-2.0); EOS % 0.7 % (0-4.5); HEMATOCRIT 26.2 % (32.4-45.2); HEMOGLOBIN 8.2 GM/dL (10.7-15.3); LYMPH % 13.9 % (8-40); MCH 20.3 pg (25.7-33.7); MCHC 31.4 g/dl (32.0-36.0); MEAN CELL VOLUME 64.5 fl (80-96); MEAN PLT VOLUME 7.6 fl (7.5-11.1); MONO % 3.2 % (3.8-10.2); NEUT % 81.9 % (42.8-82.8); PLATELET COUNT 279 10^3/uL (134-434); RBC 4.06 M/mm3 (3.60-5.2); RDW 17.8 % (11.6-15.6); WHITE BLOOD COUNT 11.2 K/mm3 (4.0-10.0)
[2021-08-06 16:50] LABS: BLOOD UREA NITROGEN 7.2 mg/dL (7-18); CALCIUM 8.5 mg/dL (8.5-10.1)
[2021-08-06 16:54] LABS: CREATININE 0.4 mg/dL (0.55-1.3)
[2021-08-06 16:58] LABS: INR 0.97 (0.83-1.09); PROTHROMBIN TIME (PATIENT) 11.4 SEC (9.7-13.0)
[2021-08-06] MEDS ORDERED: PROMETHAZINE HCL 25 MG/1 ML VIAL ONE (17:25)
[2021-08-06] MEDS ORDERED: BUTORPHANOL TARTRATE 2 MG/ML VIAL ONE (17:25)
[2021-08-06 17:44] LABS: HIV INTERPRETATION NEGATIVE (NEGATIVE)
[2021-08-06 17:47] LABS: ANISOCYTOSIS 3+; MACROCYTOSIS 1+; OVALOCYTE 1+; PLATELET ESTIMATE NORMAL
[2021-08-06] MEDS ORDERED: OXYTOCIN 20 UNITS in 0.9% NS 20 UNIT/1,000 ML INFUS.BAG IV ONE (19:00)
[2021-08-06] MEDS ORDERED: LIDOCAINE HCL 1% PRESERVATIVE FREE - 30ML VIAL ONE (19:00)
[2021-08-06] MEDS ORDERED: AMPICILLIN - 1 GM in SODIUM CHLORIDE 100 ML IVPB SCH (19:24)
[2021-08-06 19:58] LABS: COCAINE, UR NEGATIVE (NEGATIVE); METHADONE, UR NEGATIVE (NEGATIVE); PHENCYCLIDINE,URINE NEGATIVE (NEGATIVE); URINE BENZODIAZEPINES NEGATIVE (NEGATIVE)
[2021-08-06 19:59] LABS: OPIATES, URI NEGATIVE (NEGATIVE); URINE AMPHETAMINES NEGATIVE (NEGATIVE); URINE BARBITURATES NEGATIVE (NEGATIVE)
[2021-08-06] MEDS ORDERED: BENZOCAINE 28 GM HEMORRHOIDAL OINTMENT TP PRN (20:08)
[2021-08-06] MEDS ORDERED: ACETAMINOPHEN 325 MG TABLET (FP) PO PRN (20:08)
[2021-08-06] MEDS ORDERED: WITCH HAZEL 50% (TUCKS) 40 PAD/JAR PAD TP PRN (20:08)
[2021-08-06] MEDS ORDERED: METHYLERGONOVINE MALEATE 0.2 MG/1 ML AMP IM PRN (20:08)
[2021-08-06] MEDS ORDERED: BENZOCAINE 20% 57 GM BOTTLE TP PRN (20:08)
[2021-08-06] MEDS ORDERED: BISACODYL 10 MG SUPP.RECT RC PRN (20:08)
[2021-08-06] MEDS ORDERED: OXYTOCIN 20 UNITS in 0.9% NS 20 UNIT/1,000 ML INFUS.BAG IV SCH (20:15)
[2021-08-06 20:57] LABS: CORD BASE EXCESS -7.6 mmol/L (0-2); CORD HCO3 18.9 mmHg (20-29); CORD PCO2 42.2 mmHg (30-78); CORD pH 7.27 (7.14-7.44)
[2021-08-06 20:58] LABS: CORD BASE EXCESS -8.1 mmol/L (0-2); CORD PCO2 70.3 mmHg (30-78); CORD pH 7.132 (7.14-7.44)
[2021-08-06] MEDS ORDERED: oxyCODONE HCL 5 MG TABLET ONE (21:20)
[2021-08-06] MEDS: oxyCODONE HCL 5 MG TABLET PO PRN (21:20)
[2021-08-07] MEDS: oxyCODONE HCL 5 MG TABLET PO PRN (02:54)
[2021-08-07] MEDS: IBUPROFEN 600 MG TABLET (FP) PO PRN ×2 (02:55→14:54)
[2021-08-07 07:22] LABS: BASO % 0.3 % (0-2.0); EOS % 0.4 % (0-4.5); HEMATOCRIT 23.4 % (32.4-45.2); HEMOGLOBIN 7.4 GM/dL (10.7-15.3); LYMPH % 13.9 % (8-40); MCH 20.4 pg (25.7-33.7); MCHC 31.8 g/dl (32.0-36.0); MEAN CELL VOLUME 64.3 fl (80-96); MEAN PLT VOLUME 7.5 fl (7.5-11.1); MONO % 5.6 % (3.8-10.2); NEUT % 79.8 % (42.8-82.8); PLATELET COUNT 229 10^3/uL (134-434); RBC 3.64 M/mm3 (3.60-5.2); RDW 18.2 % (11.6-15.6); WHITE BLOOD COUNT 10.5 K/mm3 (4.0-10.0)
[2021-08-07] MEDS: PRENATAL VITAMINS W/ FOLIC ACID TABLET (FP) PO SCH (09:32)
[2021-08-07] MEDS: FERROUS SO4 325 MG TABLET (FP) PO SCH ×2 (09:32→17:06)
[2021-08-07] MEDS ORDERED: DIPHTH,PERTUSS(ACELL),TET 0.5 ML DISP.SYRIN IM ONE (10:00)
[2021-08-07] MEDS ORDERED: SENNOSIDES/DOCUSATE COMBO (SENNA PLUS) TABLET (UD) PO PRN (22:00)
[2021-08-08] MEDS: IBUPROFEN 600 MG TABLET (FP) PO PRN (00:51)
[2021-08-08] MEDS: FERROUS SO4 325 MG TABLET (FP) PO SCH (08:26)
[2021-08-08] MEDS: PRENATAL VITAMINS W/ FOLIC ACID TABLET (FP) PO SCH (09:45)
[2021-08-08 10:12] VITALS: BP 125/78; PULSE 91; TEMP 98.2
== END 2021-08-08 13:50 | disposition home or self-care (01) | DRG 560 ==
LOC: JDEL 14:00 → JLDR 15:08 → J3W 21:44
PROVIDERS: ADMIT Obstetrics & Gynecology; ATTEND Obstetrics & Gynecology
PROC: 10E0XZZ Delivery of Products of Conception, External Approach (ICD-10-PCS; principal; 2021-08-06)
PROC: 0HQ9XZZ Repair Perineum Skin, External Approach (ICD-10-PCS; 2021-08-06)
DX: O69.81X0 Labor and delivery complicated by cord around neck, without compression, not applicable or unspecified (principal); O70.0 First degree perineal laceration during delivery; D50.8 Other iron deficiency anemias; O99.214 Obesity complicating childbirth; Z3A.37 37 weeks gestation of pregnancy; Z37.0 Single live birth
CPT/HCPCS: 36415; 36600; 59409; 80048; 80307; 82803; 85025; 85610; 85730; 86780; 86850; 86900; 86901; 87340; 87389; 90715; C9803-CS; U0003; U0005

== ENCOUNTER 2022-01-04 22:44 | Emergency (ER) | payer OTHER ==
[2022-01-04 22:58] VITALS: BP 111/78; PULSE 100; TEMP 98.2; BMI 39.9
== END 2022-01-05 01:18 | disposition home or self-care (01) ==
LOC: JER 22:44
DX: J06.9 Acute upper respiratory infection, unspecified (principal)
CPT/HCPCS: 99282-25

== ENCOUNTER 2022-06-12 11:25 | Inpatient (IN) | payer OTHER ==
[2022-06-12] MEDS ORDERED: METHYLERGONOVINE MALEATE 0.2 MG/1 ML AMP IM PRN (12:25)
[2022-06-12] MEDS ORDERED: BENZOCAINE 20% 57 GM BOTTLE TP PRN (12:25)
[2022-06-12] MEDS ORDERED: BISACODYL 10 MG SUPP.RECT RC PRN (12:25)
[2022-06-12] MEDS ORDERED: BENZOCAINE 28 GM HEMORRHOIDAL OINTMENT TP PRN (12:25)
[2022-06-12] MEDS ORDERED: ACETAMINOPHEN 325 MG TABLET (FP) PO PRN (12:25)
[2022-06-12] MEDS ORDERED: WITCH HAZEL 50% (TUCKS) 40 PAD/JAR PAD TP PRN (12:25)
[2022-06-12] MEDS ORDERED: OXYTOCIN 20 UNITS in 0.9% NS 20 UNIT/1,000 ML INFUS.BAG IV SCH (12:30)
[2022-06-12] MEDS ORDERED: ELECTROLYTE-148 SOLN 1,000 ML IV SCH (12:30)
[2022-06-12 13:38] VITALS: BMI 44.9
[2022-06-12] MEDS ORDERED: OXYTOCIN 20 UNITS in 0.9% NS 20 UNIT/1,000 ML INFUS.BAG IV ONE (14:01)
[2022-06-12 16:11] LABS: BASO % 0.3 % (0-2.0); EOS % 0.3 % (0-4.5); HEMATOCRIT 32.6 % (32.4-45.2); HEMOGLOBIN 10.9 GM/dL (10.7-15.3); LYMPH % 9.2 % (8-40); MCH 26.6 pg (25.7-33.7); MCHC 33.4 g/dl (32.0-36.0); MEAN CELL VOLUME 79.4 fl (80-96); MEAN PLT VOLUME 7.8 fl (7.5-11.1); MONO % 4.3 % (3.8-10.2); NEUT % 85.9 % (42.8-82.8); PLATELET COUNT 198 10^3/uL (134-434); RBC 4.11 M/mm3 (3.60-5.2); RDW 18.7 % (11.6-15.6); WHITE BLOOD COUNT 12.2 K/mm3 (4.0-10.0)
[2022-06-12 16:16] LABS: INR 0.98 (0.83-1.09); PROTHROMBIN TIME (PATIENT) 11.3 SEC (9.7-13.0)
[2022-06-12 16:19] LABS: ACTIVATED PTT 27.7 SECONDS (25.2-36.5)
[2022-06-12 16:31] LABS: CALCIUM 8.4 mg/dL (8.5-10.1)
[2022-06-12 16:32] LABS: BLOOD UREA NITROGEN 8.3 mg/dL (7-18)
[2022-06-12 16:35] LABS: CREATININE 0.3 mg/dL (0.55-1.3)
[2022-06-12] MEDS: IBUPROFEN 600 MG TABLET (FP) PO PRN (17:07)
[2022-06-12 17:27] LABS: HIV INTERPRETATION NEGATIVE (NEGATIVE)
[2022-06-13 09:51] LABS: BASO % 0.4 % (0-2.0); EOS % 1.7 % (0-4.5); HEMATOCRIT 31.2 % (32.4-45.2); HEMOGLOBIN 10.2 GM/dL (10.7-15.3); LYMPH % 19.1 % (8-40); MCH 26.1 pg (25.7-33.7); MCHC 32.7 g/dl (32.0-36.0); MEAN CELL VOLUME 79.7 fl (80-96); MEAN PLT VOLUME 8.1 fl (7.5-11.1); MONO % 4.5 % (3.8-10.2); NEUT % 74.3 % (42.8-82.8); PLATELET COUNT 203 10^3/uL (134-434); RBC 3.92 M/mm3 (3.60-5.2); RDW 18.5 % (11.6-15.6); WHITE BLOOD COUNT 9.4 K/mm3 (4.0-10.0)
[2022-06-13] MEDS: PRENATAL VITAMINS W/ FOLIC ACID TABLET (FP) PO SCH (10:32)
[2022-06-13] MEDS: IBUPROFEN 600 MG TABLET (FP) PO PRN (13:15)
[2022-06-13] MEDS ORDERED: SENNOSIDES/DOCUSATE COMBO (SENNA PLUS) TABLET (UD) PO PRN (22:00)
[2022-06-14 02:47] VITALS: RESP 18
[2022-06-14 09:02] VITALS: BP 136/74; PULSE 77; TEMP 97
[2022-06-14] MEDS: PRENATAL VITAMINS W/ FOLIC ACID TABLET (FP) PO SCH (10:24)
== END 2022-06-14 12:23 | disposition home or self-care (01) | DRG 560 ==
LOC: JLDR 11:25 → J3W 15:20
PROVIDERS: ADMIT Obstetrics & Gynecology; ATTEND Obstetrics & Gynecology
PROC: 10E0XZZ Delivery of Products of Conception, External Approach (ICD-10-PCS; principal; 2022-06-12)
DX: O30.043 Twin pregnancy, dichorionic/diamniotic, third trimester (principal); O60.14X0 Preterm labor third trimester with preterm delivery third trimester, not applicable or unspecified; Z37.2 Twins, both liveborn; Z3A.32 32 weeks gestation of pregnancy
CPT/HCPCS: 36415; 80048; 85025; 85610; 85730; 86780; 86850; 86900; 86901; 87389; 88307-TC; C9803-CS; U0003; U0005